=== PATIENT | male | born 1930 | race Caucasian/White ===

== ENCOUNTER → 2017-07-23 | Day surgery (SDC) | payer OTHER ==
[~2017-07-23] VITALS: Ht 177.8 cm; Wt 85.8 kg
[~2017-07-23] MED LIST: *LABETALOL HCL 100 MG/20 ML VIAL PERIprocedural Use ONLY ONE; *morphine SULFATE 8 MG/ML PERIprocedure ONLY ONE; ACETAMINOPHEN/HYDROcodone 325 MG/5 MG TAB PO PRN; ACYC800T PO; BUPIVACAINE/EPINEPHRINE 0.25% 50 ML VIAL ONE; BUPIVACAINE/EPINEPHRINE 0.25% PF 10 ML VIAL ONE; CHLORHEXIDINE GLUCONATE 2 % 1 PACK (2 CLOTHS) TOPICAL PRN; COQ-100C5 PO; DO NOT ADM ANY ANTICOAGULANT DRUGS PRN; GABA100C4 PO; INSULIN HUMAN REGULAR 1,000 UNITS/10 ML VIAL SQ PRN; LACTATED RINGER'S 1000 ML IV PRN; METO-488 PO; METOPROLOL TARTRATE 25 MG TAB PO PRN; METRONIDAZOLE 500 MG/100 ML ISONTONIC SOLN IV SCH; MORPHINE SULFATE 4 MG/ML INJ IV PUSH PRN; NALOXONE HCL 0.4 MG/ML AMP IV PRN; NITR0.4S SL; ONDANSETRON HCL 4 MG/2 ML VIAL IV PRN; ONDANSETRON HCL 4 MG/2 ML VIAL IV PUSH ONE; POVIDONE IODINE 5% (ANTISEPSIS KIT) 4 APPLICATIONS EACH NARE PRN; PROPOFOL 200 MG/20 ML AMP IV ONE; Post-op Orders (for Pharmacy) MISC XX ONE; SIMV20TA PO; SODIUM CHLORID 0.9% 500 ML IV PRN; SODIUM CHLORIDE 0.9% FLUSH 5 ML FLUSH IVF PRN; SODIUM CHLORIDE 0.9% FLUSH 5 ML FLUSH IVF SCH; SUGAMMADEX SODIUM 200 MG/2 ML VIAL IV PUSH ONE; TAMS0.4C4 PO; VITA100018 PO; ceFAZolin 2 GM PREMIX 50 ML IV SCH; diphenhydrAMINE HCL 25 MG CAP PO PRN
[2017-07-23 12:25] LABS: AUTOMATED NEUTROPHIL # 3.5 TH/MM3 (1.8-7.7); BASOPHIL % 0.5 % (0.0-2.0); EOSINOPHIL # 0.1 TH/MM3 (0-0.4); EOSINOPHIL % 2.3 % (0.0-4.0); HEMO FLAGS DIFF FINAL; LYMPH % 22.2 % (9.0-44.0); LYMPHOCYTE # 1.2 TH/MM3 (1.0-4.8); MEAN CELL VOLUME 97.3 FL (80.0-100.0); MEAN CORPUSCULAR HEMOGLOBIN 34.7 PG (27.0-34.0); MEAN CORPUSCULAR HGB CONC 35.6 % (32.0-36.0); MONO % 10.8 % (0.0-8.0); NEUT % 64.2 % (16.0-70.0); PLATELET COUNT 136 TH/MM3 (150-450); RED BLOOD COUNT 4.32 MIL/MM3 (4.50-5.90); RED CELL DISTRIBUTION WIDTH 14.1 % (11.6-17.2); WHITE BLOOD COUNT 5.4 TH/MM3 (4.0-11.0)
[2017-07-23 12:45] LABS: BICARBONATE 26.6 MEQ/L (21.0-32.0); POTASSIUM 4.3 MEQ/L (3.5-5.1)
[2017-07-23 12:46] LABS: INDIRECT BILIRUBIN 0.8 MG/DL (0.0-0.8); TOTAL BILIRUBIN ADULT 1.1 MG/DL (0.2-1.0)
[2017-07-23 16:41] VITALS: BP 129/81; PULSE 78; RESP 18; TEMP 97.6; O2SAT 96
--- NOTE | 2017-07-23 22:58 | MP ---
cc: COLLEEN GORMAN M.D. DATE OF SURGERY 07/23/2017 PREOPERATIVE DIAGNOSIS Chronic cholecystitis. POSTOPERATIVE DIAGNOSIS Chronic cholecystitis. PROCEDURE PERFORMED Laparoscopic cholecystectomy. SURGEON Colleen Gorman MD ANESTHESIA General endotracheal. COMPLICATIONS None. INDICATIONS FOR PROCEDURE Mr. Zimmer is a very pleasant 87-year-old gentleman who has had chronic postprandial right upper quadrant abdominal pain. He underwent ultrasound, showed gallbladder wall thickening and gallstones. He also was noted to have shingles in the right upper quadrant and it is difficult to determine if the pain was from a shingles or from his chronic cholecystitis. The patient found the pain persisted after eating and he returned to the office. We discussed elective cholecystectomy to rule out the gallbladder as the etiology of his chronic right upper quadrant abdominal pain. Risks and benefits of laparoscopic, possible open cholecystectomy was discussed with him and his and they were agreeable. DETAILS Thee patient was identified, brought to the operating room, placed supine on the operating table. After adequate general endotracheal anesthesia achieved the abdomen was prepped and draped in standard surgical fashion. Infraumbilical space anesthetized with 0.25% Marcaine. Infraumbilical incision was made. Dissection was carried down to the subcutaneous tissue midline fascia. Midline fascia was then incised sharply. A finger was then placed in the peritoneal cavity without difficulty. Blunt balloon trocar was inserted and the abdomen was insufflated to 15 mm using CO2 gas. Next, two 5 mm trocars were placed in the right upper quadrant after anesthetizing the skin and subcutaneous tissue with 0.25% Marcaine. Both trocars were placed under direct vision. Attention was directed the right upper quadrant where distended gallbladder was seen. Gallbladder is noted to have omental adhesions along its underside indicating chronic inflammation. Gallbladder was retracted cephalad. Gallbladder was very thin walled and a small hole was made in the gallbladder during the retraction. Suction road production general manager was used to suction out all the bile. The omental adhesions were carefully taken down with blunt and electrocautery dissection. Attention was now directed to the gallbladder neck where the cystic artery and cystic duct were clearly identified in two planes. Once they were confirmed in two planes they were clipped twice proximally, once distally and then divided. A small posterior branch of the artery was also identified and this was clipped singly once and then divided distally with the electrocautery Bovie. Gallbladder was then dissected out of the hepatic fossa using electrocautery Bovie. Gallbladder was placed in an Endopouch bag and brought out through the infraumbilical port. Gallbladder was inspected and found to contain some small stones. Clips in place on the cystic duct stump. Gallbladder sent to pathology. Next, the abdominal cavity revisualized. Liver bed was completely hemostatic. Clips were inspected on the cystic duct stump. There was no evidence leakage of bile. Clips were inspected on the cystic artery and there was no evidence of bleeding. Abdominal cavity was rinsed out with 1 liter warm saline solution. ___ was noted be clear. Liver bed and clips were inspected a second time and again confirmed there was no bleeding. No leakage of bile. Omentum was placed in the hepatic fossa and all ports removed under direct vision. Midline fascia was repaired with 0 Vicryl in [id number] fashion. Skin was closed with 4-0 Vicryl. The patient tolerated the procedure well, was awakened, brought to recovery in stable condition. MD ALEKSANDAR Lazar/LISA /2:58 PM /10:44 PM
--- NOTE | 2017-07-24 17:03 | EKG ---
Date Performed: 07/23/2017 Time Performed: 12:07:34 PTAGE: 87 years EKG: ATRIAL FIBRILLATION Since previous tracing, no significant change noted ABNORMAL RHYTHM ECG PREVIOUS TRACING : 06/13/2015 21.27 DOCTOR: Grace Collazo Interpretating Date/Time 07/24/2017 17:01:10
== END | disposition home or self-care (01) ==
LOC: HSDC 11:01
PROVIDERS: ATTEND Surgery Trauma Surgery
DX: K81.1 Chronic cholecystitis (principal); I48.91 Unspecified atrial fibrillation; K21.9 Gastro-esophageal reflux disease without esophagitis; Z79.01 Long term (current) use of anticoagulants; Z79.899 Other long term (current) drug therapy
CPT/HCPCS: 00790; 47562; 80048; 80076; 85025; 88304; 93005; J0690; J2270; J2405; J3010; J7120

== ENCOUNTER → 2018-02-13 | Day surgery (SDC) | payer OTHER ==
[~2018-02-13] VITALS: Ht 177.8 cm; Wt 90.9 kg
[~2018-02-13] MED LIST changes: -*LABETALOL HCL 100 MG/20 ML VIAL PERIprocedural Use ONLY ONE; -*morphine SULFATE 8 MG/ML PERIprocedure ONLY ONE; +ACETAMINOPHEN 500 MG CPLT PO PRN; -ACETAMINOPHEN/HYDROcodone 325 MG/5 MG TAB PO PRN; -ACYC800T PO; +ATROPINE SULFATE 1% OPHT SOLN 2 ML BTL ONE; +BALANCED SALT SOLN OPHT IRRIG 15 ML BTL ONE; +BUPIVACAINE HCL PF 0.75% 10 ML VIAL ONE; -BUPIVACAINE/EPINEPHRINE 0.25% 50 ML VIAL ONE; -BUPIVACAINE/EPINEPHRINE 0.25% PF 10 ML VIAL ONE; -COQ-100C5 PO; +DEXAMETHASONE SOD PHOS 4 MG/ML VIAL ONE; -DO NOT ADM ANY ANTICOAGULANT DRUGS PRN; +EPINEPHrine HCL (1:1000) 1 MG/ML VIAL ONE; -GABA100C4 PO; +GABA600T PO; -INSULIN HUMAN REGULAR 1,000 UNITS/10 ML VIAL SQ PRN; +METO1TAB42 PO; -METRONIDAZOLE 500 MG/100 ML ISONTONIC SOLN IV SCH; -MORPHINE SULFATE 4 MG/ML INJ IV PUSH PRN; -NALOXONE HCL 0.4 MG/ML AMP IV PRN; -ONDANSETRON HCL 4 MG/2 ML VIAL IV PRN; -ONDANSETRON HCL 4 MG/2 ML VIAL IV PUSH ONE; -PROPOFOL 200 MG/20 ML AMP IV ONE; -Post-op Orders (for Pharmacy) MISC XX ONE; +SIMV10TA PO; -SIMV20TA PO; -SODIUM CHLORIDE 0.9% FLUSH 5 ML FLUSH IVF PRN; -SODIUM CHLORIDE 0.9% FLUSH 5 ML FLUSH IVF SCH; -SUGAMMADEX SODIUM 200 MG/2 ML VIAL IV PUSH ONE; +TOBRAMYCIN 0.3%/DEXAMETHASONE 0.1% OPHT SUSP 5 ML BTL ONE; +TOBRAMYCIN/DEXAMETHASONE OPTH OINT 3.5 GM TUBE ONE; +TRIAMCINOLONE ACETONIDE 40 MG/ML VIAL ONE; -ceFAZolin 2 GM PREMIX 50 ML IV SCH; +ceFAZolin INJ 1,000 MG VIAL ONE; -diphenhydrAMINE HCL 25 MG CAP PO PRN; +fentaNYL CITRATE 250 MCG/5 ML AMP ONE; +oxyCODONE/ACETAMINOPHEN 5 MG/325 MG TAB PO PRN
[2018-02-13] MEDS: TROPICAMIDE 1% OPHT SOLN 15 ML BTL LEFT EYE SCH ×3 (09:17→10:05)
[2018-02-13] MEDS: PHENYLEPHRINE HCL 2.5% OPTH SOLN 2 ML BTL LEFT EYE SCH ×3 (09:17→10:05)
[2018-02-13] MEDS: ATROPINE SULFATE 1% OPHT SOLN 5 ML BTL LEFT EYE SCH ×3 (09:17→10:05)
[2018-02-13] MEDS: CYCLOPENTOLATE HCL 1% OPHT SOLN 2 ML BTL LEFT EYE SCH ×3 (09:17→10:05)
[2018-02-13 09:36] LABS: AUTOMATED NEUTROPHIL # 2.5 TH/MM3 (1.8-7.7); BASOPHIL % 0.6 % (0.0-2.0); EOSINOPHIL # 0.1 TH/MM3 (0-0.4); HEMATOCRIT 44.9 % (39.0-51.0); HEMOGLOBIN 15.7 GM/DL (13.0-17.0); LYMPH % 33.5 % (9.0-44.0); LYMPHOCYTE # 1.6 TH/MM3 (1.0-4.8); MEAN CELL VOLUME 97.2 FL (80.0-100.0); MEAN CORPUSCULAR HEMOGLOBIN 33.9 PG (27.0-34.0); MEAN CORPUSCULAR HGB CONC 34.9 % (32.0-36.0); MONO % 10.8 % (0.0-8.0); MONOCYTE # 0.5 TH/MM3 (0-0.9); NEUT % 52.1 % (16.0-70.0); PLATELET COUNT 137 TH/MM3 (150-450); RED BLOOD COUNT 4.63 MIL/MM3 (4.50-5.90); RED CELL DISTRIBUTION WIDTH 13.1 % (11.6-17.2); WHITE BLOOD COUNT 4.8 TH/MM3 (4.0-11.0)
--- NOTE | 2018-02-13 13:41 | EKG ---
Date Performed: 02/13/2018 Time Performed: 09:34:42 PTAGE: 87 years EKG: ATRIAL FIBRILLATION ABNORMAL RHYTHM ECG No significant change from prior electrocardiogram. PREVIOUS TRACING : 07/23/2017 12.07 DOCTOR: Amadeo Anna Interpretating Date/Time 02/13/2018 13:21:20
--- NOTE | 2018-02-13 14:48 | MP ---
cc: Tiffany Hubbard MD DATE OF OPERATION: 02/13/2018 INDICATIONS: This patient is an 87-year-old gentleman who fell and hit his left eye on the edge of a table back in December. He presented with a dense vitreous hemorrhage and hyphema in his left eye on 01/07/2018. Vision was light perception/hand motion. PREOPERATIVE DIAGNOSIS: Vitreous hemorrhage, open funnel retinal detachment, left eye. POSTOPERATIVE DIAGNOSIS: Vitreous hemorrhage, rhegmatogenous retinal detachment with D1, PVR or open funnel retinal detachment, inferior temporal retinal dialysis and occult ruptured globe between 12 and 2 o'clock superior temporally, left eye. DETAILS OF PROCEDURE: Trans pars plana vitrectomy with membranectomy scleral buckle procedure, gas-fluid exchange, cryoretinopexy and instillation of 1000 centistoke silicone oil, in addition to an inferior peripheral iridectomy, left eye. SURGEON: Dr. Tiffany Hubbard. ANESTHESIA: Laryngeal mask anesthesia. INDICATIONS: Mr. Zimmer is an 87-year-old gentleman who fell and hit the edge of a table, hitting his right eye and orbit back in December. He presented in mid-December with a dense vitreous hemorrhage and vision in the light perception to hand motion range with anterior chamber hyphema. He was placed on steroids and cycloplegia and followed and the hyphema cleared. The retina remained attached on serial B-scans and the vitreous hemorrhage was slowly clearing. He presented Saturday02/10/2018 with a sudden onset of blackness in his left eye. Repeat B-scan now showed an open funnel retinal detachment in his left eye. He was told that he would need surgery to remove the vitreous hemorrhage and address the underlying retinal detachment. He agreed to the procedure as planned. PROCEDURE: He was brought to [facility] operating room #1 and placed on the operating table. Appropriate anesthesia monitoring devices were applied, and he was placed under general anesthesia using a laryngeal mask. The left eye was identified as the operative site and then prepped and draped in the usual sterile fashion. A lid speculum was placed. Using the Reyna scissors a 360 conjunctival peritomy was done with a relaxing incision done radially at 4 o'clock. All four quadrants were opened with blunt dissection using the Reyna scissors. The four recti muscles were then isolated and transferred onto 4-0 black silk ties. All four quadrants were inspected and the sclera was found to be of good thickness. In the superotemporal quadrant between about 12 30 and 2 there was a circumferential thin show of choroid to which was attached fibrotic tissue as if there had been an occult rupture in that area. A 41 band was threaded underneath the recti muscles and through a 5-0 Dacron suture mattress style in each quadrant and then secured loosely with a 70 sleeve in the superior nasal quadrant. A three-port 23-gauge vitrectomy was then carried out removing all the vitreous hemorrhage. The retina was found to be in an open stiff funnel configuration with a star folds in the midperiphery at 4, 6, 8 and 10. There was a retinal dialysis between 4 and 5:30 o'clock so the retina was loosened as best could be a accomplished with a Fabio's pick and with the counter tension of Perfluoron in the posterior pole. It could not be flattened entirely but the superior 2/3 of the retina was attached. The Perfluoron was exchanged for sterile air and the breaks in the inferior periphery were treated with cryopexy. The air was exchanged out for 1000 centistoke oil for a complete fill. An iridectomy was performed with the vitrectomy cutter at 6 o'clock. The buckle was tightened with egress of silicone oil allowed through the superior nasal cannula. The cannulas were then removed and closed with interrupted 7-0 Vicryl. The buckle was sewed down in all 4 quadrants with the preplaced Dacron sutures. The eye had good pressure, no visible air leaks. The orbit was irrigated with a mixture 0.75% Marcaine without epinephrine and tobramycin. The conjunctiva was brought back up into place and closed along the radial relaxing incision with 7-0 chromic. The lid speculum was removed, as were the 4-0 silk ties and the patient was undraped. The left eye was given TobraDex on the cornea and then patched and shielded. The patient had the laryngeal mass removed in the room and was returned to recovery lying on his right side. He will be asked to perform face down positioning when awake and alert. The prognosis for this eye is guarded. Prognosis for usable vision is guarded. MD JOSEPH Hernadez/SB , 01:54 PM , 02:47 PM
[2018-02-13 15:30] VITALS: BP 142/87; PULSE 74; RESP 20; TEMP 97.8; O2SAT 97
== END | disposition home or self-care (01) ==
LOC: HSDC 08:23
PROVIDERS: ATTEND Ophthalmology
DX: H33.002 Unspecified retinal detachment with retinal break, left eye (principal); H43.12 Vitreous hemorrhage, left eye; E10.3592 Type 1 diabetes mellitus with proliferative diabetic retinopathy without macular edema, left eye; I10 Essential (primary) hypertension; I48.91 Unspecified atrial fibrillation
CPT/HCPCS: 00145; 67113; 85025; 93005; C1814; J0171; J0690; J1100; J3010; J3301; J7120